=== PATIENT | female | born 1990 | race Caucasian/White ===

== ENCOUNTER 2016-06-07 18:34 | Inpatient (IN) | payer OTHER ==
[~2016-06-07] VITALS: Ht 157.5 cm; Wt 71.2 kg
[2016-06-07] MEDS ORDERED: Carboprost 250 mCg/mL Inj IM PRN (19:30)
[2016-06-07] MEDS ORDERED: Methylergonovine 0.2 mg/mL Inj IM PRN (19:30)
[2016-06-07] MEDS ORDERED: Oxytocin 30 Units/500 mL LR 30 UNITS in IV Premix 1 EACH IV PRN ×2 (19:30→20:40)
[2016-06-07] MEDS ORDERED: Lactated Ringer's 1,000 ML IV PRN (19:30)
[2016-06-07] MEDS ORDERED: Oxytocin 10 Unit/mL Inj IM PRN (19:30)
[2016-06-07] MEDS ORDERED: Hemorrhage Kit, Post Partum XX ONE (19:30)
[2016-06-07] MEDS ORDERED: diphenhydrAMINE 50 mg Capsule PO PRN (20:40)
[2016-06-07] MEDS ORDERED: Lactated Ringer's 1,000 ML IV SCH (20:40)
[2016-06-07 22:12] LABS: Mean Corpuscular Hemoglobin 30.8 pg (27.0-35.0); Mean Corpuscular Volume 88.5 fL (81-100)
[2016-06-08] MEDS ORDERED: CeFAZolin Inj 2 GM in IV Premix 1 EACH IV ONE (05:00)
[2016-06-08] MEDS ORDERED: Lactated Ringer's 1,000 ML IV PRN (05:51)
[2016-06-08] MEDS ORDERED: Oxytocin 30 Units/500 mL LR 30 UNITS in IV Premix 1 EACH IV PRN ×3 (05:51→11:00)
[2016-06-08] MEDS ORDERED: Lactated Ringer's 1,000 ML IV SCH ×2 (05:53→10:59)
[2016-06-08] MEDS: fentaNYL-PF 50 mCg/mL 2 mL Inj IVPUSH PRN ×2 (06:34→11:43)
[2016-06-08] MEDS: Sodium Chloride LOK Flush 10 mL Syringe IVFLUSH PRN ×2 (09:40→15:39)
[2016-06-08] MEDS ORDERED: Hemorrhage Kit, Post Partum XX ONE (11:00)
[2016-06-08] MEDS ORDERED: Methylergonovine 0.2 mg/mL Inj IM PRN (11:00)
[2016-06-08] MEDS ORDERED: LANOlin HPA 7 Gm Ointment TOPICAL PRN (11:00)
[2016-06-08] MEDS ORDERED: HYDROcodone-APAP 5-325 mg Tablet PO PRN (11:00)
[2016-06-08] MEDS ORDERED: Witch Hazel-Glycerin Pads TOPICAL PRN (11:00)
[2016-06-08] MEDS ORDERED: Benzocaine (Dermoplast) 20% 60 Gm Spray TOPICAL PRN (11:00)
[2016-06-08] MEDS ORDERED: Oxytocin 10 Unit/mL Inj IM PRN (11:00)
[2016-06-08] MEDS ORDERED: Carboprost 250 mCg/mL Inj IM PRN (11:00)
[2016-06-08 12:14] LABS: BASOPHILS % (AUTO) 0.2 % (0-3); EOSINOPHILS % (AUTO) 0.1 % (0-5); MONOCYTES % (AUTO) 3.2 % (4-12); Mean Corpuscular Hemoglobin 30.3 pg (27.0-35.0); Mean Corpuscular Volume 86.8 fL (81-100); NEUTROPHILS % (AUTO) 88.2 % (40-74); Platelet Count 201 bil/L (150-400)
[2016-06-08] MEDS ORDERED: CeFAZolin Inj 1 GM in IV Premix 1 EACH IV SCH ×2 (13:00→20:00)
--- NOTE | 2016-06-08 15:18 | OP ---
[address] [address] OPERATIVE REPORT PATIENT: GELY PYLE : 1990 MR#: [id number] ADMIT: 06/07/2016 JOB ID: [id number] DATE OF SURGERY: 06/08/2016 TIME: 10:12 a.m. POSTOPERATIVE DIAGNOSIS(ES): PREOPERATIVE DIAGNOSIS(ES): SURGEON: Ernesto Teran MD DELIVERY SUMMARY: This 25-year-old female delivered an infant female of approximately 14-1/2 ounces and breech, with known demise at 24 weeks and 6 days estimated gestational age. She did this by vaginal delivery. The patient had presented to the ER last night in the evening and had noted decreased movement. The ER obtained an ultrasound which showed no heartbeat and an infant with proportions equaling about 21 weeks in gestational age. The patient had noticed good movement even two days just prior to this event. The patient and her were sent upstairs to labor and delivery, where I was called for community call, and they had decided to undergo induction for delivery purposes. I arrived at the [facility] and had a discussion with them about the risks of a breech delivery and what might happen in terms of my interventions in order to deliver appropriately. They understood this. There were also given the option of going back home and coming back at another time to be induced. They did not want to do this. The patient was given 400 mcg of Cytotec vaginally and was noted to have increasing tightening of her uterus even then. This did not significantly progress and so she was given a 2nd dose of the same strength 4 hours later. 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 and she entered true latent labor and her cervix was found to be 2 cm. This did not change for several hours, but her pain increased. She required a 50 mg IV dose of fentanyl. This seemed to help. She did not obtain an epidural. Just as she was thinking about an epidural, her pain increased and she had spontaneous rupture of membranes which resulted in clear bloody fluid. This happened shortly before 10 a.m. I was called at this point and was on my way when I received another call shortly after that she was in the process of delivering. On my arrival, the was delivering and the head was delivered without incident. The patient did excellent work with her pushing and the placenta was still undelivered. The patient's placenta delivered at 10:29, which was approximately 18 minutes after delivery of the baby. It delivered spontaneously and intact. Pitocin was started. The patient's bleeding was minimal at 100 cc. Her uterus was found to be firm. Her perineum was intact, her vagina was intact, and her rectum was intact. No nuchal cord was noted. I examined the baby and she was found to have no dysmorphic features. Her head, body, and extremities were proportionate. The placenta had no obvious signs of pathology and no obvious signs of infection. After delivery, I further counseled the patient and her and answered all of their questions. They were not interested in an autopsy. We did go ahead and send the placenta to Pathology for further analysis. Counts were correct x2. The patient was in excellent condition following the procedure.
--- NOTE | 2016-06-08 18:58 | PCM.DC.OB ---
Obstetrical Discharge Summary Date of Service Jun 08, 2016 Date of hospital admission Jun 07, 2016 at 18:34 Date of Discharge: Jun 08, 2016 Providers Admitting Physician: Ernesto Teran MD Primary Care Physician: Mallory Fink CNM Attending Physician: Ernesto Teran MD Problems: (1) demise > 22 weeks, delivered, current hospitalization Status: Acute ICD Code: O36.4XX0 Consultations None Invasive procedures NVD of breech premature demise Date of Procedure: Jun 08, 2016 Hospital Course: Patient presented with demise. Induced. Uncomplicated breech delivery. Recovered and wanted to go home later in the evening. Follow-up plan Nurse midwives to f/u in two days. Discharge Activity-General: Pelvic Rest, Try not to overdue, Activity as pain allows, Activity as energy allows, No lifting >15 pounds for 2 weeks copies to: Divina Chaudhary CNM, David B MD Jun 08, 2016 18:58
--- NOTE | 2016-06-08 19:06 | PCM.DIOB ---
Obstetrical Disch Instruction Date of Service: Jun 08, 2016 Dates of Hospitalization Date of Hospital Admission Jun 07, 2016 at 18:34 Providers Admitting Physician: Ernesto Teran MD Primary Care Physician: Mallory Fink CNM Attending Physician: Ernesto Teran MD Discharge Diagnosis Problems: (1) demise > 22 weeks, delivered, current hospitalization Status: Acute ICD Code: O36.4XX0 Diet Discharge Diet: No restrictions Activity Discharge Activity-General: Pelvic Rest for 6 weeks, Activity as pain allows, Activity as energy allows, No lifting >15 pounds for 2 weeks Dressing and Incisional Care Hygiene: May shower, Perineal care, Sitz bath, Dermoplast spray, Witch Nancy pads Follow Up Plan Follow Up Plan Take ibuprofen and tylenol for pain. Watch for fevers. Call for fevers greater than 101. Follow-up Provider (F9): Divina Chaudhary CNM Follow-up appointment: Days (2) Call your provider for: Fever or Chills, Heavy vaginal bleeding, Excessive constipation, Vaginal discomfort, Red painful breasts Ernesto Teran MD Jun 08, 2016 19:06
--- NOTE | 2016-06-10 11:24 | PATH ---
SURGICAL PATHOLOGY Attending Physician:Ernesto Teran MD CASE STATUS: Signed Out PATIENT NAME: GELY PYLE PID: [id number] : 1990 DATE COLLECTED:06/08/2016 16:35 SPECIMEN: Placenta CLINICAL HISTORY: DEMISE 2ND TRIMESTER @21-24. NO OBVIOUS CAUSE OF DEMISE 1). PLACENTA FINAL DIAGNOSIS: 1.PLACENTA: [place] PLACENTA WITH ACUTE CHORIOAMNIONITIS. ICD10 CODE O41.1 GROSS DESCRIPTION: The specimen is received in formalin, labeled with the patient's name and consists of a placenta and includes placental disc (176.1 g, 11.0 x 10.0 x 2.6 cm), umbilical cord (length-30.2 cm, diameter-1.0 x 1.0 cm) received in 2 pieces and membranes. The membranes are ruptured at the free edge of the placenta and are semi-translucent. The umbilical cord is attached 4.3 cm from the edge of the placenta, is dusky garces-black and contains 3 vessels. The surface is smooth and shiny with no evidence of meconium. The maternal surface is dominique with normal cotyledon formation. The placental disc is spongy with no hematomas, infarcts, nodules, masses, or lesions. Section code: (A, B) edge of placenta with membranes, umbilical cord; (C-F) placenta, 4 full thickness sections. Note: Case reviewed by Dr. Kaylee Ruggiero. 06/09/16 MICRO DESCRIPTION: See diagnosis. ICD-9 CODES: CPT CODES: 1: 46637 Electronically Signed Out Jewels Garcia MD [facility] [address], [place] [address] Technical component performed at [facility], [address] [place] [address] Ave[address], [place], [address]
== END 2016-06-08 20:15 | disposition home or self-care (01) | DRG 560 ==
LOC: FBC 18:34
PROVIDERS: ADMIT Family Medicine; ATTEND Family Medicine
PROC: 3E0P7GC Introduction of Other Therapeutic Substance into Female Reproductive, Via Natural or Artificial Opening (ICD-10-PCS; 2016-06-07)
PROC: 10E0XZZ Delivery of Products of Conception, External Approach (ICD-10-PCS; principal; 2016-06-08)
DX: O36.4XX0 Maternal care for intrauterine death, not applicable or unspecified (principal); O32.1XX0 Maternal care for breech presentation, not applicable or unspecified; Z37.1 Single stillbirth; Z3A.22 22 weeks gestation of pregnancy